=== PATIENT | female | born 1995 | race Caucasian/White ===

== ENCOUNTER 2025-06-16 08:33 | Emergency (ER) | payer OTHER, SELFPAY ==
[2025-06-16] VITALS (11 sets, daily range): BP systolic 108–132; BP diastolic 55–73; PULSE 87–100; RESP 16; TEMP 38.1–38.7; O2SAT 96–100; BMI 18.4
--- NOTE | 2025-06-16 08:52 | DI.US.S_ITS ---
PROCEDURE: US PELVIC COMPLETE INDICATIONS: RIGHT LOWER QUADRANT PAIN. ?APPENDICITIS VS OVARIAN ETIOLOGY TECHNIQUE: Real-time scanning was performed of the pelvic organs, with image documentation. Additional endovaginal scanning was necessary due to incomplete visualization of the adnexal and endometrial structures by transabdominal scanning. COMPARISON: None. FINDINGS: Uterus: Uterus is anteverted and normal in size at 6.8 x 4.9 x 3.0 cm. The myometrium is homogeneous. The endometrium measures 3 mm combined thickness. IUD is noted centrally in expected position. Ovaries: The right ovary measures 5.2 x 2.3 x 2.8 cm, with a calculated ovarian volume of 16.9 cc. The left ovary measures 5.2 x 3.8 x 2.9 cm, with a calculated ovarian volume of 30 cc. The ovaries have a normal sonographic appearance. . Greater than 10 follicles are seen in each ovary. Complex debris containing left ovarian cyst with peripheral vascularity measuring 20 x 20 x 13 mm. Arterial and venous flow noted in both ovaries. No concerning adnexal mass lesion. Other: No pathologic free abdominal or pelvic fluid. Appendix is not seen. IMPRESSION: Complex 20 mm left ovarian cyst most consistent with a corpus luteum. No concerning adnexal mass lesion. No sonographic findings concerning for ovarian torsion. IUD noted centrally. No uterine fibroids. Normal endometrium. Appendix is not seen. Sonographic appearance of both ovaries suggestive of polycystic ovarian syndrome. Findings meet the [place] definition of polycystic ovaries. In the absence of ovulatory dysfunction or clinically/biochemically diagnosed hyperandrogenism, findings are non specific and do not indicate the presence of polycystic ovarian syndrome. We strive to produce accurate, complete, and clear reports of imaging services. To assist us in improving patient care, this report was composed using standard report templates and voice recognition software. Therefore, it may contain abnormal punctuation, insertions and/or omissions. Occasional wrong-word or sound-alike substitutions may occur. Though we review the report and make efforts to correct it, we do recommend that the report be read carefully in proper context to recognize any text inaccuracies. Dictated by: Nely Ozuna M.D. on 06/16/2025 at 9:50 Approved by: Nely Ozuna M.D. on 06/16/2025 at 9:59
--- NOTE | 2025-06-16 08:54 | ED_ITS ---
HPI - Abdominal Pain General Chief Complaint: Abdominal Pain Stated Complaint: Abdominal pain/chills/sore joints/swollen lymphnod Time Seen by Provider: 06/16/25 08:42 History of Present Illness HPI narrative: 30-year-old female with IUD, history of abnormal Pap test, here with acute right lower quadrant pain that woke her up from sleep. Pain is severe. She has never had pain such as this before. No history of ovarian cysts or torsion. She is sexually active with 1 male partner. No history of STD or concern for today. She did have some light vaginal spotting today, last menstrual period was 2-3 weeks ago. No nausea or vomiting. No UTI symptoms. No prior abdominal surgeries Related Data Home Medications ?Medication ?Instructions ?Recorded ?Confirmed levonorgestrel (Mirena) intrauterine 06/01/24 Allergies Allergy/AdvReac Type Severity Reaction Status Date / Time No Known Drug Allergies Allergy Verified 06/16/25 08:53 Review of Systems Review of Systems Narrative: Pertinent ROS obtained and negative except as stated in HPI Patient History Surgical History Anesthesia [place] teeth removed (~2009) History of myringotomy (~1996) Family History Father Bladder cancer Depression Anxiety Mental health problem Mother Hypertension Skin cancer Sister Mental health problem Grandfather Hypertension Grandmother Cancer Breast cancer Social History Smoking Status: Never smoker Exam Narrative Exam Narrative: Constitutional: 30-year-old female sitting up in bed, appears uncomfortable, tearful Head: NCAT Cardiovascular: RRR, no murmur or rub Pulmonary: CTA bilaterally, no respiratory distress Abdominal: soft, tender to palpation maximally in the right lower quadrant and suprapubic area, no upper abdominal discomfort, negative Davis's Extremities: No LE edema Skin: warm and dry, no diaphoresis Neurological: Alert and oriented x3 Initial Vital Signs Initial Vital Signs: Vital Signs Temperature 101.6 F H 06/16/25 08:38 Pulse Rate 92 H 06/16/25 08:38 Respiratory Rate 16 06/16/25 08:38 Blood Pressure 130/73 06/16/25 08:38 Pulse Oximetry 100 10/03/25 08:38 Oxygen Delivery Method Room Air 06/16/25 08:38 Course Orders Ordered: Discontinued Medications Ketorolac Tromethamine (Ketorolac 30 Mg/Ml Vial) 15 mg IV NOW ONE Stop: 06/16/25 10:46 Last Admin: 06/16/25 11:00 Dose: 15 mg Documented By: ALFREDO Morphine Sulfate (Morphine 4 Mg/Ml Inj) 4 mg IV NOW ONE Stop: 06/16/25 08:53 Last Admin: 06/16/25 09:11 Dose: 4 mg Documented By: BRAD Ondansetron HCl (Ondansetron 4 Mg/2 Ml Inj) 4 mg IV NOW PRN PRN Reason: Nausea And Vomiting Ondansetron HCl (Ondansetron 4 Mg Odt) 4 mg PO NOW PRN PRN Reason: Nausea And Vomiting Ondansetron HCl (Ondansetron 4 Mg/2 Ml Inj) 4 mg IV NOW ONE Stop: 06/16/25 08:53 Last Admin: 06/16/25 09:11 Dose: 4 mg Documented By: BRAD Vital Signs Vital signs: Vital Signs - 8 hr 06/16/25 08:38 06/16/25 08:48 06/16/25 09:00 Temperature 101.6 F H Pulse Rate 92 H 96 H 95 H Respiratory Rate 16 Blood Pressure 130/73 Pulse Oximetry 100 100 100 Oxygen Delivery Method Room Air 06/16/25 09:00 06/16/25 09:43 06/16/25 09:44 Temperature Pulse Rate 88 90 Respiratory Rate Blood Pressure 132/66 Pulse Oximetry 99 100 Oxygen Delivery Method 06/16/25 09:44 06/16/25 09:59 06/16/25 09:59 Temperature 100.6 F H Pulse Rate 100 H Respiratory Rate Blood Pressure 110/61 124/68 Pulse Oximetry 100 Oxygen Delivery Method 06/16/25 10:00 06/16/25 10:00 06/16/25 10:30 Temperature Pulse Rate 92 H 90 Respiratory Rate Blood Pressure 118/63 Pulse Oximetry 100 100 Oxygen Delivery Method 06/16/25 10:30 06/16/25 11:00 06/16/25 11:00 Temperature Pulse Rate 89 Respiratory Rate Blood Pressure 110/59 L 111/57 L Pulse Oximetry 100 Oxygen Delivery Method MDM - Abdominal Pain Lab Data 06/16/25 08:40 06/16/25 08:40 Labs: Lab Results 06/16/25 Range/Units 08:40 WBC 13.5 H (4.5-11.0) X10^3/uL RBC 5.00 (4.0-5.2) X10^6/uL Hgb 14.2 (12.0-16.0) g/dL Hct 41.9 (36-46) % MCV 84.0 (80-100) fL MCH 28.4 (26-34) PG MCHC 33.8 (30-36) % RDW 13.2 (11.6-14.8) % Plt Count 229 (150-400) X10^3/uL Neut % (Auto) 90.9 H (50-75) % Lymph % (Auto) 5.3 L (25-40) % [place] % (Auto) 3.2 (3-14) % Eos % (Auto) 0.1 L (2-4) % Baso % (Auto) 0.5 (0-2) % Neut # (Auto) 47611 H (2408-7790) /uL Lymph # (Auto) 700 L (7901-2094) /uL [place] # (Auto) 400 (0-900) /uL Eos # (Auto) 0 (0-450) /uL Baso # (Auto) 100 (0-100) /uL Sodium 137 (137-145) mmol/L Potassium 3.8 (3.4-5.1) mmol/L Chloride 103 (98-107) mmol/L Carbon Dioxide 24 (22-32) mmol/L BUN 12 (7-17) mg/dL Creatinine 0.73 (0.52-1.04) mg/dL Estimated GFR > 60 (>60) mL/min BUN/Creatinine Ratio 16.4 (6-22) Glucose 100 H (70-99) mg/dL Calcium 8.9 (8.4-10.2) mg/dL Total Bilirubin 1.0 (0.2-1.3) mg/dL AST 24 (14-36) IU/L ALT 16 (<35) IU/L Alkaline Phosphatase 56 (38-126) U/L Total Protein 7.8 (6.3-8.2) g/dL Albumin 4.8 (3.5-5.0) g/dL Globulin 3.0 (1.7-4.1) g/dL Albumin/Globulin Ratio 1.6 (1.0-2.8) Lipase 30 (23-300) U/L Urine RBC 1-5/hpf (0-5/HPF) Urine WBC 5-10/hpf H (0-5/HPF) Ur Squamous Epith Cells 5-10 /hpf H (0-5/HPF) Urine Bacteria None seen (None) Urine Mucus 1+ H (Negative) Ur Culture Indicated? Specimen cultured Vol Urine Centrifuged 10ml (spun) Urine Test Negative (Negative) SARS-CoV-2 (PCR) Negative (Negative) Influenza A (RT-PCR) Flu a negative (NEGATIVE) Influenza B (RT-PCR) Flu b negative (NEGATIVE) RSV (PCR) Negative (Negative) Point of care testing: Point of Care Testing Test Results Negative Urine Dip Bedside Urine Glucose Negative Bedside Urine Bilirubin - Negative Bedside Urine Ketone - Negative Urine Specific [place] 1.010 Bedside Urine Occult Blood +/- Bedside Urine pH 7.5 Bedside Urine Protein +/- 15 Bedside Urine Urobilinogen - Negative Bedside Urine Nitrite - Negative Bedside Urine Leukocytes + 70 Esterase MDM Narrative Medical decision making narrative: I am most concerned currently in this patient for acute ovarian torsion. We will obtain pelvic ultrasound and try to evaluate the appendix as well, send laboratories, urinalysis, and urine test. I have also considered ureteral colic, ovarian cyst rupture, ectopic , , STD/PID less likely I ordered this patient IV morphine and Zofran At 9:35 a.m. preliminarily porcelain technician is able to visualize flow to right ovary. Was not able to visualize appendix due to bowel gas. Given this I have ordered a CT scan US IMPRESSION: Complex 20 mm left ovarian cyst most consistent with a corpus luteum. No concerning adnexal mass lesion. No sonographic findings concerning for ovarian torsion. IUD noted centrally. No uterine fibroids. Normal endometrium. Appendix is not seen. Sonographic appearance of both ovaries suggestive of polycystic ovarian syndrome. Findings meet the [place] definition of polycystic ovaries. In the absence of ovulatory dysfunction or clinically/biochemically diagnosed hyperandrogenism, findings are non specific and do not indicate the presence of polycystic ovarian syndrome. IMPRESSION: CT abd/pelvis Portions of the suspected normal appendix are identified. Specifically, no secondary signs of appendicitis identified. 18 mm left ovarian corpus luteum. Otherwise, no acute abnormality detected. Laboratories today there is leukocytosis of 13.5, hemoglobin 14, normal CMP, urinalysis is contaminated with 5-10 WBCs no bacteria 1-5 RBCs On reassessment of the patient at 11:15 a.m. she is resting comfortably in bed. Repeat abdominal exam is improved. She still has some focal tenderness in the right lower quadrant but no guarding. Abdomen is soft and compressible. We discussed laboratories including elevated white blood cell count. Her vital signs have remained normal. We discussed possible early appendicitis and recommended strict return precautions. We also discussed possible PCOS. Patient does see her wad blanking press adjuster this week for another Pap test. Did offer to broaden workup including a pelvic exam and STD screen but patient declines. She has low suspicion for PID at this time. No definite etiology of patient's discomfort is identified. Discharge Plan Departure Patient Disposition: Home Clinical Impression: Acute right lower quadrant pain Instructions: Polycystic Ovary Syndrome, Appendicitis, DI for Abdominal Pain- Adult Activity Restrictions/Additional Instructions: A definite source of your pain was not discovered today. CT scan did not show any definite evidence of acute appendicitis, as we discussed, I would like you to have a low threshold to return to the emergency department if you develop persistent or worsening right lower quadrant pain as this could be a sign of developing appendicitis. Similarly return if poor appetite, fever, fatigue, vomiting able to keep fluids down, or other symptoms that are concerning to you. Ultrasound of your pelvis did show possible PCOS or polycystic ovarian syndrome. You can discuss this further with your wad blanking press adjuster at your appointment next week. Prescriptions: No Action Mirena 21 mcg/24 hr (8 yrs) 52 mg intrauterine device intrauterine Stand Alone Forms: Patient Portal/API
[2025-06-16 09:01] LABS: Add Manual Diff / Slide Review NO; Hematocrit 41.9 % (36-46); Hemoglobin 14.2 g/dL (12.0-16.0); Lymphocytes Absolute Auto 700 /uL (1100-4500); Mean Corpuscular HGB Conc 33.8 % (30-36); Mean Corpuscular Hemoglobin 28.4 PG (26-34); Mean Corpuscular Volume 84.0 fL (80-100); Platelet Count 229 X10^3/uL (150-400)
[2025-06-16 09:04] LABS: Alanine Aminotransferase 16 IU/L (<35); Albumin 4.8 g/dL (3.5-5.0); Albumin Globulin Ratio 1.6 (1.0-2.8); Alkaline Phosphatase 56 U/L (38-126); Blood Urea Nitrogen 12 mg/dL (7-17); Calcium 8.9 mg/dL (8.4-10.2); Carbon Dioxide 24 mmol/L (22-32); Chloride 103 mmol/L (98-107); Estimated Glomerular Filt Rate > 60 mL/min (>60); Globulin 3.0 g/dL (1.7-4.1); Glucose 100 mg/dL (70-99); HEMOLYSIS < 15 (0-50); Lipase 30 U/L (23-300); Potassium 3.8 mmol/L (3.4-5.1); Sodium 137 mmol/L (137-145); Total Protein 7.8 g/dL (6.3-8.2)
[2025-06-16 09:06] LABS: Culture Indicated Urine Specimen Cultured
[2025-06-16] MEDS: ONDANSETRON 4 MG/2 ML INJ IV (09:11)
[2025-06-16] MEDS: MORPHINE 4 MG/ML INJ IV (09:11)
[2025-06-16 09:37] LABS: Influenza A - CEPHEID Flu A NEGATIVE (NEGATIVE); Influenza B - CEPHEID Flu B NEGATIVE (NEGATIVE)
[2025-06-16 09:38] LABS: COVID-19 CEPHEID 4-PLEX PCR Negative (Negative)
--- NOTE | 2025-06-16 09:42 | DI.CT.S_ITS ---
PROCEDURE: CT ABDOMEN PELVIS W CON INDICATIONS: rlq pain ?appy or colic TECHNIQUE: After the administration of intravenous contrast, axial sections acquired from the lung bases to the pubic symphysis. Coronal and sagittal reformats were performed. For radiation dose reduction, the following was used: automated exposure control, adjustment of mA and/or kV according to patient size. COMPARISON: [facility], , PELVIC COMPLETE, 06/16/2025, 9:08. FINDINGS: Image quality: Diagnostic. Lower Chest: No significant findings. ABDOMEN: Liver: No solid mass. Gallbladder: No radiopaque gallstones or wall thickening. Biliary ducts: No biliary dilation. Pancreas: No ductal dilation. Spleen: Size is within normal limits. Adrenal Glands: No adrenal nodules. Kidneys and Ureters: No hydronephrosis. No solid mass. No complex renal cystic lesion which requires follow up. Stomach and Bowel: Normal colonic caliber, without significant wall thickening. Portions of a possible normal appearing appendix is seen in the right lower quadrant. No secondary signs of acute appendicitis identified. Peritoneum: No abnormal intraperitoneal fluid. No free air. Ventral Wall: No significant ventral hernia. Abdominal Nodes: No retroperitoneal or mesenteric adenopathy by size criteria. Vessels: Aorta and inferior vena cava are normal in size. PELVIS: Pelvic Organs: IUD noted in expected position. Mildly complex 18 mm left ovarian cyst with peripheral enhancement most consistent with a corpus luteum. Otherwise, normal pelvic organs. Bladder: No bladder wall thickening, accounting for underdistention. Pelvic Nodes: No enlarged lymph nodes. Miscellaneous: No inguinal hernias are seen. Bones: No aggressive osseous abnormality. IMPRESSION: Portions of the suspected normal appendix are identified. Specifically, no secondary signs of appendicitis identified. 18 mm left ovarian corpus luteum. Otherwise, no acute abnormality detected. Dictated by: Nely Oznua M.D. on 06/16/2025 at 10:18 Approved by: Nely Ozuna M.D. on 06/16/2025 at 10:29
[2025-06-16] MEDS: KETOROLAC 30 MG/ML VIAL 15 MG IV (11:00)
== END 2025-06-16 11:44 | disposition home or self-care (01) ==
PROVIDERS: Emergency Provider Student in an Organized Health Care Education/Training Program
DX: N83.12 Corpus luteum cyst of left ovary (principal); R10.31 Right lower quadrant pain; Z97.5 Presence of (intrauterine) contraceptive device
CPT/HCPCS: 36415; 74177; 76856; 80053; 81003; 81015; 81025; 83690; 85025; 87086; 87637; 96374; 96375; 99284; J1885; J2270; J2405

== ENCOUNTER → 2025-08-30 09:41 | Outpatient (CLI) | payer OTHER, SELFPAY ==
[2025-08-31 02:08] LABS: HSV 1 IGG Reactive (Non Reactive); HSV 2 IGG Non Reactive (Non Reactive)
== END ==
PROVIDERS: PCP Registered Nurse; Referring Provider Obstetrics & Gynecology; Visit Provider Obstetrics & Gynecology
DX: Z20.2 Contact with and (suspected) exposure to infections with a predominantly sexual mode of transmission (principal)
CPT/HCPCS: 36415; 86695; 86696